=== PATIENT | male | born 1990 | race Caucasian/White ===

== ENCOUNTER 2019-11-07 07:53 | Emergency (ER) | payer OTHER ==
[~2019-11-07] VITALS: Ht 167.6 cm; Wt 86.9 kg
--- NOTE | 2019-11-07 08:00 | NUR ---
PT HERE WITH C/O TESTICULAR PAIN X 1 WEEK. PT DENIES URINARY SYMPTOMS
--- NOTE | 2019-11-07 08:28 | NUR ---
UA COLLECTED AND SENT, PT TO US AT THIS TIME
[2019-11-07 08:44] LABS: MICROSCOPIC NOT IND
[2019-11-07 08:54] VITALS: BP 124/80
[2019-11-07 08:54] LABS: CULTURE INDICATED? NO
== END 2019-11-07 09:56 | disposition home or self-care (01) ==
LOC: ED 08:48
DX: N50.812 Left testicular pain (principal); Z87.891 Personal history of nicotine dependence
CPT/HCPCS: 76870; 81003; 87491; 87591; 99284

== ENCOUNTER 2020-12-20 17:10 | Emergency (ER) | payer OTHER ==
[~2020-12-20] VITALS: Ht 170.2 cm; Wt 105.0 kg
[2020-12-20 18:58] LABS: BASOPHILS % (AUTO) 1 % (0-1); EOSINOPHILS % (AUTO) 3 % (1-7); LYMPHOCYTES % (AUTO) 34 % (22-44); MEAN CORPUSCULAR HGB CONC 34.1 g/dL (33.2-36.2); MEAN PLATELET VOLUME 11.4 fL (7.4-10.4); MONOCYTES % (AUTO) 8 % (2-9); NEUTROPHILS % (AUTO) 54 % (42-75); PLATELET COUNT 207 x10^3/uL (130-400); RED BLOOD COUNT 5.18 x10^6/uL (4.38-5.82); RED CELL DISTRIBUTION WIDTH 13.2 % (9.4-14.8)
[2020-12-20 18:59] LABS: MD NO
[2020-12-20 19:01] LABS: ALBUMIN 3.7 g/dL (3.4-5.0); ANION GAP 8 mmol/L (5-15); CALCIUM 8.5 mg/dL (8.5-10.1); CHLORIDE 108 mmol/L (98-107); CREATININE 0.98 mg/dL (0.7-1.3)
[2020-12-20 20:09] VITALS: BP 150/103
== END 2020-12-20 20:23 | disposition home or self-care (01) ==
LOC: ED 20:13
DX: J04.0 Acute laryngitis (principal); R43.8 Other disturbances of smell and taste
CPT/HCPCS: 36415; 70360; 80048; 82040; 84443; 85025; 99284